=== PATIENT | male | born 1965 | race Caucasian/White ===

== ENCOUNTER → 2024-07-20 15:45 | Outpatient (BNVA) | payer OTHER, MEDICAID, SELFPAY | PROVIDERS: PCP Family Medicine; Visit Provider Emergency Medicine | DX: S49.92XA Unspecified injury of left shoulder and upper arm, initial encounter (principal); W19.XXXA Unspecified fall, initial encounter | CPT/HCPCS: 73030 ==

== ENCOUNTER 2024-07-20 16:07 | Outpatient (CLI) | payer OTHER, SELFPAY ==
--- NOTE | 2024-07-20 16:19 | XRR_ITS ---
PROCEDURE INFORMATION: Exam: XR Left Scapula Exam date and time: 07/20/2024 4:26 PM Age: 59 years old Clinical indication: Left; Patient HX: Lt shoulder/scapular/clavicle pain post fall TECHNIQUE: Imaging protocol: Radiologic exam of the left scapula. Complete exam. COMPARISON: CR XR shoulder LT min 2V* [id number] 07/20/2024 3:46 PM FINDINGS: Bones/joints: Glenohumeral and acromioclavicular alignment is normal. No acute fracture. Soft tissues: Visible soft tissues are unremarkable. XR/[place] [id number] IMPRESSION: No acute findings.
== END 2024-07-20 16:08 | disposition home or self-care (01) ==
LOC: RAD 16:18
PROVIDERS: PCP Family Medicine; Visit Provider Emergency Medicine
DX: S49.92XA Unspecified injury of left shoulder and upper arm, initial encounter (principal)
CPT/HCPCS: 73010

== ENCOUNTER → 2025-03-27 11:32 | Outpatient (BNVA) | payer OTHER, MEDICAID, SELFPAY | PROVIDERS: PCP Family Medicine; Visit Provider Family Medicine | DX: Z00.00 Encounter for general adult medical examination without abnormal findings (principal); I10 Essential (primary) hypertension; E78.5 Hyperlipidemia, unspecified; K21.9 Gastro-esophageal reflux disease without esophagitis; F32.A Depression, unspecified; J44.9 Chronic obstructive pulmonary disease, unspecified; Z12.5 Encounter for screening for malignant neoplasm of prostate | CPT/HCPCS: 80053; 80061; 82607; 85025; G0103 ==